=== PATIENT | female | born 1955 | race Caucasian/White ===

== ENCOUNTER 2019-12-08 08:00 | Outpatient (CLI) | payer OTHER ==
[~2019-12-08] VITALS: Ht 165.1 cm; Wt 95.3 kg
[2019-12-08] MEDS ORDERED: LOTREL 5-20 MG1 CAP PO (15:56)
[2019-12-08] MEDS ORDERED: LIPITOR10 MG PO (15:57)
--- NOTE | 2019-12-08 16:33 | NUR ---
RODRIGUEZ: T98.3, P56 R20 BP 134/66 O2SAT 95%
[2019-12-08 17:07] LABS: HEMATOCRIT 43.8 % (36.0-48.0); HEMOGLOBIN 14.4 g/dL (12-16); MCHC 32.9 g/dL (31.0-37.0); MCV 91.3 fL (80.0-100.0); MEAN PLATELET VOLUME 9.3 fL (7.4-10.4); RBC 4.8 10x6/uL (4.00-5.40); WBC 8.3 10x3/uL (4.8-10.8)
[2019-12-08 17:23] LABS: ANION GAP 9.8 mmol/L (8-16); CALCIUM 8.8 mg/dL (8.5-10.1); CARBON DIOXIDE 27.4 mmol/L (21.0-32.0); CREATININE - SERUM 1.1 mg/dL (0.6-1.3); POTASSIUM - SERUM 4.2 mmol/L (3.5-5.1)
[2019-12-16 09:44] VITALS: Ht 165.1 cm; Wt 95.3 kg
== END 2019-12-08 08:01 | disposition home or self-care (01) ==
LOC: D.PAN 08:00 → D.OPS 12-11 09:30 → EDSTATUS 12-11 14:15 → D.OPS 12-11 14:15 → D.PAN 12-11 14:15
PROVIDERS: Anesthesiology; ATTEND Orthopaedic Surgery
DX: M75.121 Complete rotator cuff tear or rupture of right shoulder, not specified as traumatic (principal)

== ENCOUNTER 2019-12-16 08:44 | Day surgery (SDC) | payer OTHER ==
[~2019-12-16] VITALS: Ht 165.1 cm; Wt 95.3 kg
--- NOTE | ~2019-12-16 | OP ---
PATIENT NAME: MARY AGUILAR MEDICAL RECORD: [id number] :51 LOCATION:[place] ADMISSION DATE: SURGEON: RAPHAEL GOFF MD DATE OF OPERATION: 12/16/2019 PREOPERATIVE DIAGNOSES: 1. Right shoulder pain. 2. Right shoulder impingement. 3. Biceps tendinitis. 4. Partial rotator cuff tear. POSTOPERATIVE DIAGNOSES: 1. Right shoulder pain. 2. Right shoulder impingement. 3. Biceps tendinitis. 4. Partial rotator cuff tear. PROCEDURE PERFORMED: Right shoulder scope with subacromial decompression, distal clavicle excision, and limited glenohumeral debridement. INDICATIONS FOR PROCEDURE: Ms. Aguilar is a 64-year-old female with a history of right shoulder pain and impingement. She has been having worsening pains in her shoulder and exam was concerning for possible rotator cuff pathology. MRI was obtained that showed evidence of at least a partial tear in the anterior fibers of the rotator cuff. She is also having symptoms of shoulder impingement and biceps tendinitis. We talked with her about this condition and options for conservative versus surgical treatment. She has elected to proceed with surgery for shoulder arthroscopy. She was initially scheduled with Dr. Piña but then transferred to my schedule for surgery. I spoke with the patient regarding the procedure and associated risks and the patient has agreed to proceed. DESCRIPTION OF PROCEDURE: The patient was met in the holding area where her identity and confirmation of procedure was performed. The right upper extremity was marked. She was taken to the operating room where she was placed supine on the operating table and anesthesia was administered. She was then positioned in the left lateral decubitus position. Extremities were positioned and padded appropriately. A stockinette was applied to the right arm and the arm was placed into traction. The patient received preoperative antibiotics and time-out was performed before initiating the case. On initiation of the case, subacromial space was infiltrated with 20 mL of 0.25% Marcaine with epinephrine. We then placed our posterior portal, inserted the camera, placed our anterior portal under direct visualization. Diagnostic shoulder arthroscopy was then performed. There was noted to be some fraying at the biceps tendon at its insertion and extending into the bicipital groove. There was fraying of the superior and anterior labrum as well. The cartilage appeared to be in good condition. There was some undersurface fraying of the anterior rotator cuff. Posterior cuff was intact. Given the amount of fraying in the biceps tendon, we elected to perform a biceps tenotomy. This was completed using a small biter. The shaver was then used to debride the stump of the biceps tendon as well as excess tissue at the superior and anterior labrum. The undersurface of the rotator cuff was also debrided. It did not appear to fully communicate with the bursal side of the cuff. The size I measured approximately 1 cm of area and thickness was about 50%. This area was tagged with a PDS suture. We then moved to the subacromial space. There was noted to be extensive thickening of the bursa in this space. A lateral portal was placed to assist with our procedure. OPERATIVE REPORT [id number] MARY AGUILAR The bursa was debrided with the shaver and cautery at the undersurface of the acromion. A bur was used to smooth the undersurface of the acromion. Our PDS suture was identified at the rotator cuff. There did not appear to be any significant wear on the bursal side of the tissue. A probe was inserted and we attempted to probe into this tissue but again, the tissue appeared solid, therefore no further procedures were performed to the rotator cuff. The AC joint did appear to have some arthrosis and this was taken down with a shaver and cautery. A bur was then inserted to complete our distal clavicle excision. Before and after images were obtained throughout the procedure and this completed our procedure. Instruments were removed and fluid was drained from the shoulder. Portal sites were infiltrated with 0.25% Marcaine and then closed with nylon suture. A sterile dressing was placed. The patient was placed into a sling, turned back over to anesthesia where she was awakened, extubated, and taken to recovery room in stable condition. POSTOPERATIVE PLAN: The patient is going to return home with her family today. She needs to remain in sling at all times for the next couple of weeks but can come out to perform gentle elbow range of motion and pendulums. We will plan to see her back in 2 weeks for followup and we will likely get her started with physical therapy at that time. ANESTHESIA: General. SPECIMENS: None. ESTIMATED BLOOD LOSS: 10 mL. NTS:[id number] Voice Confirmation ID: [id number] DOCUMENT ID: [id number] RAPHAEL GOFF MD CC: [id number] DICTATION DATE: 12/17/19 1506 [place] TENDER: 12/17/191929 [facility] 12/16/19 [facility] [address] [id number]
[~2019-12-16 08:44] MED LIST: LIPITOR10 MG PO; LOTREL 5-20 MG1 CAP PO
[2019-12-16 09:44] VITALS: BP 146/67; Ht 165.1 cm; Wt 95.3 kg
--- NOTE | 2019-12-16 17:03 | NUR ---
1630 PT MAINTAINED SATS ON RA, IV REMOVED AND INSTRUCTIONS GIVEN AND ASSISTED TO BATHROOM TO VOID. VOIDED. REINFORCED DRESSING FOR SMALL AMT OF DRAINAGE NEAR BOTTOM EDGE OF DRESSING.
== END 2019-12-16 16:55 | disposition home or self-care (01) ==
LOC: D.OPS 08:44 → D.PAN 10:45 → D.OPS 16:55
PROVIDERS: ATTEND Orthopaedic Surgery
DX: M25.511 Pain in right shoulder (principal); M75.41 Impingement syndrome of right shoulder; M75.21 Bicipital tendinitis, right shoulder; M75.111 Incomplete rotator cuff tear or rupture of right shoulder, not specified as traumatic; I10 Essential (primary) hypertension; E78.2 Mixed hyperlipidemia; E11.9 Type 2 diabetes mellitus without complications